=== PATIENT | female | born 2005 | race Caucasian/White ===

== ENCOUNTER 2023-09-27 05:47 | Emergency (ER) | payer OTHER, BC, SELFPAY ==
[2023-09-27 05:50] VITALS: BP 131/84; PULSE 95; TEMP 36.8; O2SAT 99; BMI 32.8
--- NOTE | 2023-09-27 06:02 | ED.PREGNANC1 ---
HPI - General Chief complaint: OB/Uterine Contractions Stated complaint: issues 10 weeks Time Seen by Provider: 09/27/23 05:59 Source: patient Mode of arrival: walk-in Limitations: no limitations History of Present Illness HPI Narrative: [id number] 12 weeks presents with complaint of vaginal bleeding and abdominal cramping. Past history of PCOS. States noted brown discharge last PM around 8:30 when she would wipe. Later discharged red and noticeable with urination. No fever or chills or nausea. Denies family history of miscarriage or past history of PE or DVT MD Complaint: Reports vaginal bleeding Review of Systems ROS Status of ROS 10 or more systems reviewed and unremarkable except as noted in history and below Exam Constitutional Vital Signs, click to edit/add: Last Vital Signs Temp 98.3 F 09/27/23 05:50 Pulse 95 H 09/27/23 05:50 Resp 18 09/27/23 05:50 BP 131/84 09/27/23 05:50 Pulse Ox 99 09/27/23 05:50 O2 Del Method Room Air 09/27/23 05:50 Common normals: no apparent distress, average body habitus, oriented x3, no limitations, healthy appearing, alert and well nourished [facility] Common normals: normocephalic and head/scalp atraumatic Eye Common normals: EOMs intact bilaterally and conjunctivae normal Respiratory Common normals: normal respiratory effort, no retractions, no use of accessory muscles and clear to auscultation bilaterally Cardio Common normals: regular rate, regular rhythm, S1 normal heart sound and S2 normal heart sound GI Other: soft. mild suprapubic tenderness Other: normal external genital exam. Small amount of blood from os into vaginal canal. No active bleeding. No cervical motion tenderness. No adnexa mass or tenderness Extremity Common normals: normal to inspection and full ROM Neuro Common normals: oriented x3, CN's II-XII intact bilaterally, moves all extremities and no focal motor deficits Psych Appearance: grossly normal Course Vital Signs Vital signs: Vital Signs Temperature 98.3 F 09/27/23 05:50 Pulse Rate 95 H 09/27/23 05:50 Respiratory Rate 18 09/27/23 05:50 Blood Pressure 131/84 09/27/23 05:50 Pulse Oximetry 99 09/27/23 05:50 Oxygen Delivery Method Room Air 09/27/23 05:50 Temperature 98.3 F 09/27/23 05:50 Pulse Rate 95 H 09/27/23 05:50 Respiratory Rate 18 09/27/23 05:50 Blood Pressure 131/84 09/27/23 05:50 Pulse Oximetry 99 09/27/23 05:50 Oxygen Delivery Method Room Air 09/27/23 05:50 MDM - OB/Uterine Contractions MDM Narrative Medical decision making narrative: [id number] 12 week vaginal bleeding. Pelvic exam with blood from os into canal that is mild. No obvious active bleeding. Bimanual exam is normal. labs pending. US ordered. Care transferred to oncoming physician at change of shift Lab Data Labs: Lab Results 09/27/23 09/27/23 Range/Units 06:10 06:14 WBC 12.0 H (4.0-11.0) 10^3/uL RBC 4.93 (4.20-5.40) 10^6/uL Hgb 13.7 (12.0-16.0) g/dL Hct 41.6 (36.0-48.0) % MCV 84.4 (81.0-99.0) fL MCH 27.8 (26.7-34.0) pg MCHC 32.9 (29.9-35.2) g/dL RDW 12.7 (11.0-15.0) % Plt Count 439 (150-450) 10^3/uL MPV 9.3 L (9.5-13.5) fL Neut % (Auto) 63.2 (43.0-75.0) % Lymph % (Auto) 26.4 (20.5-60.0) % Chambers % (Auto) 8.3 (1.7-12.0) % Eos % (Auto) 1.1 (0.9-7.0) % Baso % (Auto) 0.7 (0.2-2.0) % Neut # (Auto) 7.6 H (1.4-6.5) 10^3/uL Lymph # (Auto) 3.2 (1.2-3.8) 10^3/uL Chambers # (Auto) 1.0 H (0.3-0.8) 10^3/uL Eos # (Auto) 0.1 (0.0-0.7) 10^3/uL Baso # (Auto) 0.1 (0.0-0.1) 10^3/uL Abs Immat Gran (auto) 0.04 H (0.00-0.03) 10^3/uL Imm/Tot Granulo (auto) 0.3 (0.0-0.5) % Urine Color Brown A (YELLOW) Urine Clarity Clear (CLEAR) Urine pH 5.5 (5.0-9.0) Ur Specific Emblem >=1.030 A (1.005-1.025) Urine Protein 30 A (NEG/TRACE) mg/dL Urine Glucose (UA) Negative (NEGATIVE) mg/dL Urine Ketones >=80 A (NEGATIVE) mg/dL Urine Occult Blood Large A (NEGATIVE) Urine Nitrite Negative (NEGATIVE) Urine Bilirubin Moderate A (NEGATIVE) Urine Urobilinogen 0.2 (0.2-1.0) EU/dL Ur Leukocyte Esterase Trace A (NEGATIVE) Discharge Plan Discharge Chief Complaint: OB/Uterine Contractions Clinical Impression: Vaginal bleeding affecting early Patient Disposition: Still a Patient Print Language: Salvadorean Referrals: JEANINE DIOP [Primary Care Provider] - 1 week
[2023-09-27 06:20] LABS: Basophils Absolute Auto 0.1 10^3/uL (0.0-0.1); Basophils Percent Auto 0.7 % (0.2-2.0); Eosinophils Absolute Auto 0.1 10^3/uL (0.0-0.7); Eosinophils Percent Auto 1.1 % (0.9-7.0); Hematocrit 41.6 % (36.0-48.0); Hemoglobin 13.7 g/dL (12.0-16.0); Immature Granulocytes Abs Auto 0.04 10^3/uL (0.00-0.03); Immature Granulocytes Pct Auto 0.3 % (0.0-0.5); Lymphocytes Absolute Auto 3.2 10^3/uL (1.2-3.8); Lymphocytes Percent Auto 26.4 % (20.5-60.0); Mean Corpuscular HGB Conc 32.9 g/dL (29.9-35.2); Mean Corpuscular Hemoglobin 27.8 pg (26.7-34.0); Mean Corpuscular Volume 84.4 fL (81.0-99.0); Mean Platelet Volume 9.3 fL (9.5-13.5); Monocytes Percent Auto 8.3 % (1.7-12.0); Neutrophils Absolute Auto 7.6 10^3/uL (1.4-6.5); Neutrophils Percent Auto 63.2 % (43.0-75.0); Platelet Count 439 10^3/uL (150-450); Red Blood Count 4.93 10^6/uL (4.20-5.40); Red Cell Distribution Width 12.7 % (11.0-15.0)
[2023-09-27 06:22] LABS: Bilirubin Urine MODERATE (NEGATIVE); Blood Urine LARGE (NEGATIVE); Clarity Urine CLEAR (CLEAR); Color Urine BROWN (YELLOW); Glucose Urine UA NEGATIVE (NEGATIVE); Ketones Urine >=80 mg/dL (NEGATIVE); Leukocyte Esterase Urine TRACE (NEGATIVE); Nitrite Urine NEGATIVE (NEGATIVE); Protein Urine 30 mg/dL (NEG/TRACE); Specific Gravity Urine >=1.030 (1.005-1.025); Urobilinogen Urine 0.2 EU/dL (0.2-1.0); pH Urine 5.5 (5.0-9.0)
[2023-09-27 06:23] LABS: Urine Microscopic Indicated YES
--- NOTE | 2023-09-27 06:26 | US_ITS ---
The [address] [address] Patient Name: SUN VASQUEZ MRN: [id number] date: 2005 Sex: F Assigned Patient Location: ER Current Patient Location: ER Accession/Order Number: [id number] Exam Date: 09/27/2023 06:27 Report Date: 09/27/2023 07:34 At the request of: MYRNA ZAMORA Procedure: US OB transvaginal EXAM: US OB transvaginal HISTORY: . miscarriage? . COMPARISON: None. TECHNIQUE: Transvaginal scanning was performed FINDINGS: Scanning of the pelvis demonstrates within the endometrial cavity of the fundus of the uterus a well-formed cystic structure. No definite pole or yolk sac is noted. Findings could represent a very early gestational sac or an empty sac. Along the edge of the gestational sac is a 1.4 x 0.8 x 0.7 cm hypoechoic area. Right ovary measures 2 x 2 0.6 x 2 cm. Color-flow is noted. Small follicles are noted. Left ovary measures 2.3 x 1.6 x 1.8 cm. Color-flow is noted. Small follicles are noted. No fluid is noted in the cul-de-sac. US/US OB transvaginal IMPRESSION: 1. Small left cystic area noted within the endometrial cavity of the fundus of uterus. Findings could represent a early intrauterine or an empty sac. Along the edge of the cystic structure is a 1.4 x 0.7 cm hypoechoic paracolic area most consistent with a subchorionic bleed. Correlation clinically is suggested along with correlation of a quantitative beta hCG. Follow-up is suggested. 2. Both ovaries appear normal with no masses. 3. The cervix is closed and measures 3.1 cm. Electronically authenticated by: RIGO HUNT Date: 09/27/2023 07:34
[2023-09-27 06:33] LABS: Bacteria Urine NONE SEEN #/HPF (NONE SEEN); Cast Seen? NONE SEEN #/LPF (NONE SEEN); Crystals Seen? None Seen #/HPF (None Seen); Mucus Urine MODERATE (NONE SEEN); RBC Urine 50-75 #/HPF (0-2); Squamous Epithelial Cell Urine RARE #/LPF (NONE/RARE); WBC Urine 0-2 #/HPF (NONE SEEN)
[2023-09-27 06:34] LABS: Urine Culture Indicated NO
[2023-09-27 06:57] LABS: Anion Gap 19.1; BUN Creatinine Ratio 14.9; Calcium 8.9 mg/dL (8.5-10.1); Carbon Dioxide 22.3 mmol/L (21.0-32.0); Chloride 103 mmol/L (98-107); Estimated GFR (African America >60 (>=60); Estimated GFR (Non-African Ame >60 (>=60); Glucose 87 mg/dL (74-106); HCG Quantitative 2451 mIU/mL; Potassium 3.4 mmol/L (3.5-5.1); Sodium 141 mmol/L (136-145)
[2023-09-27] MEDS: ACETAMINOPHEN 325 MG TABLET 650 MG PO (09:11)
[2023-09-29 20:07] LABS: Neisseria gonorrhoeae, NAA Negative (Negative)
== END 2023-09-27 09:12 | disposition home or self-care (01) ==
PROVIDERS: Emergency Provider Internal Medicine; PCP Nurse Practitioner Family
DX: O20.0 Threatened abortion (principal); Z3A.12 12 weeks gestation of pregnancy
CPT/HCPCS: 36415; 76817; 80048; 81001; 84702; 85025; 86850; 86900; 86901; 87210; 87491; 87591; 99284

== ENCOUNTER 2024-04-30 14:41 | Emergency (ER) | payer OTHER, BC, SELFPAY ==
[2024-04-30 14:51] VITALS: BP 156/93; PULSE 90; TEMP 36.6; O2SAT 98; BMI 32.8
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
[2024-04-30] MEDS: IBUPROFEN 600 MG TABLET PO (16:02)
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
[2024-04-30 17:12] VITALS: PULSE 91; O2SAT 97
== END 2024-04-30 17:15 | disposition home or self-care (01) ==
PROVIDERS: Emergency Provider Emergency Medicine
DX: Z04.1 Encounter for examination and observation following transport accident (principal); M54.2 Cervicalgia
CPT/HCPCS: 72125; 99284

== ENCOUNTER 2025-02-21 14:46 | Emergency (ER) | payer BC, SELFPAY ==
--- OUTSIDE RECORDS SUMMARY | 2025-02-21 14:55 | XMS_ITS | Encounter Summary ---
Author Organization [facility] Address [address] [place] [address] Care Team Providers Care Software Validation Technician Name Role Phone Govind Mejia DO Primary Care Provider [phone] Source Comments In the event this information is protected by the Federal Confidentiality of Alcohol and Drug AbusePatient Records regulations: The Federal rules restrict any use of the information to criminally investigate or prosecute any alcohol or drug abuse patient.[facility] Encounter Details Date Type Department Care Team (Late st Contact Info) Description 04/08/2017 Get Medical Advice Pediatric Rheumatology [address] [place] [address] Ori Mchugh MD [address] [place] [address] RE: Non-Urgent Medical Question Social History Tobacco Use Types Packs/Day Years Used Date Smoking Tobacco: Never Comments No Sex and Gender Information Value Date Recorded Sex Assigned at Not on file Legal Sex Female 11:48 AM EDT Gender Identity Not on file Sexual Orientation Not on file documented as of this encounter Plan of Treatment Not on file documented as of this encounter Visit Diagnoses Not on filedocumented in this encounter Care Teams Software Validation Technician Relationship Specialty Start Date End Date Govind Mejia DO PCP - General Family Medicine 12/19/15 documented as of this encounter
--- OUTSIDE RECORDS SUMMARY | 2025-02-21 14:55 | XMS_ITS | Encounter Summary ---
Author Organization [facility] Address [address] [place] [address] Care Team Providers Care Catering Administrative Assistant Name Role Phone Govind Mejia Primary Care Provider [phone] Source Comments In the event this information is protected by the Federal Confidentiality of Alcohol and Drug AbusePatient Records regulations: The Federal rules restrict any use of the information to criminally investigate or prosecute any alcohol or drug abuse patient.[facility] Encounter Details Date Type Department Care Team (Late st Contact Info) Description 05/01/2017 Patient Msg Pediatrics [address] [place] [address] [place] [address] [place] [address] RE: Appointment Cancellation Request Social History Tobacco Use Types Packs/Day Years [...] on filedocumented in this encounter Care Teams Catering Administrative Assistant Relationship Specialty Start Date End Date Govind Mejia DO PCP - General Family Medicine 12/19/15 documented as of this encounter
--- OUTSIDE RECORDS SUMMARY | 2025-02-21 14:55 | XMS_ITS | Clinical Summary ---
Author Organization [facility] Address [address] [place], [place] [id number] Care Team Providers Care Records Tech Name Role Phone Govind Mejia Primary Care Provider [phone] Allergies No known active allergies Medications NORGESTIMATE-ETH INYL ESTRADIOL (ORTHO TRI-CYCLEN, 28, ORAL) Take by mouth. Active ISOtretinoin (ACCUTANE) 40 mg capsuleIndicatio ns:Right wrist pain,Family history of juvenile rheumatoid arthritis,Rheuma toid factor positive Take 40 mg by mouth once daily. Active Active Problems Problem Noted Date Diagnosed Date Right wrist pain 02/06/2016 Family history of juvenile rheumatoid arthritis 02/06/2016 Social History Tobacco Use Types Packs/Day Years Used Date Smoking Tobacco: Never Comments No Sex and Gender Information Value Date Recorded Sex Assigned at Not on file Legal Sex Female 11:48 AM EDT Gender Identity Not on file Sexual Orientation Not on file Last Filed Vital Signs Vital Sign Reading Time Taken Comments Blood Pressure 108/68 01/21/2017 2:38 PM EDT Pulse 76 01/21/2017 2:38 PM EDT Temperature 36.7 C (98 F) 01/21/2017 2:38 PM EDT Respiratory Rate 20 01/21/2017 2:38 PM EDT Oxygen Saturation 100% 01/21/2017 2:38 PM EDT Inhaled Oxygen Concentration - - Weight 60.6 kg (133 lb 9.6 oz) 01/21/2017 2:38 P M EDT Height 157.8 cm (5' 2.13 ) 01/21/2017 2:38 PM ED T Body Mass Index 24.34 01/21/2017 2:38 PM EDT Plan of Treatment Health Maintenance Due Date Last Done Comments Peds To Adult Transition Initial Discussion 2015 Peds To Adult Transition Annual Assessment 2017 HPV Vaccine (1 - 3-dose series) 2018 Meningococcal B Vaccine (1 of 2 - Standard) 2019 Anxiety Screening 2021 Chlamydia Screening (18-24) 2021 Depression Screening 2021 GC (Gonorrhea) Screening (18-24) 2021 HIV Screening 2021 Hepatitis C Screening 2021 DTaP,Tdap,Td Vaccine (1 - Tdap) 2022 Hepatitis B Vaccine (1 of 3 - 19+ 3-dose series) 03/17 Cervical Cancer Screening 2024 Influenza Vaccine (#1) 2025 Insurance BLUE CARD O [place] [employer] [place] Care Teams Records Tech Relationship Specialty Start Date End Date Govind Mejia DO PCP - General Family Medicine 12/19/15
--- OUTSIDE RECORDS SUMMARY | 2025-02-21 14:55 | XMS_ITS | Encounter Summary ---
Author Organization [facility] Address [address] [place] [address] Care Team Providers Care Double End Chucking Machine Operator Name Role Phone Govind Mejia DO Primary Care Provider [phone] Source Comments In the event this information is protected by the Federal Confidentiality of Alcohol and Drug AbusePatient Records regulations: The Federal rules restrict any use of the information to criminally investigate or prosecute any alcohol or drug abuse patient.[facility] Encounter Details Date Type Department Care Team (Late st Contact Info) Description 07/07/2017 Patient Msg Pediatric Rheumatology [address] [place], [place] [id number] Ori Mchugh MD [address] [place] [address] RE: Appointment Cancellation Request Social History Tobacco [...] on filedocumented in this encounter Care Teams Double End Chucking Machine Operator Relationship Specialty Start Date End Date Govind Mejia DO PCP - General Family Medicine 12/19/15 documented as of this encounter
--- OUTSIDE RECORDS SUMMARY | 2025-02-21 14:55 | XMS_ITS | Encounter Summary ---
Author Organization [facility] Address [id number] [address] [place] [address] Care Team Providers Care Four Corner Stayer Machine Operator Name Role Phone Disha Randolph IVOLETTE Primary Care Provide r Reason for Visit * Reason Comments Med Refill Encounter Details Date Type Department Care Team (Late st Contact Info) Description 02/20/2020 Refill [facility] [address] [place] [address] Alisha Morales, DO [address] [place] [address] Social History Tobacco Use Types Packs/Day Years Used Date Smoking Tobacco: Never Smokeless Tobacco: Never Alcohol Use Standard Drinks/Week Comments No 0 (1 standard drink = 0.6 oz pur e alcohol) PHQ-2 Answer Date Recorded Total Score 19 02/14/2020 Childcare Answer Date Recorded Childcare Unknown 11/19/2018 Employment Answer Date Recorded Employment Unknown 11/19/2018 Comments Unknown Sex and Gender Information Value Date Recorded Sex Assigned at Not on file Legal Sex Female 4:02 PM EDT Gender Identity Not on file Sexual Orientation Not on file COVID-19 Exposure Response Date Recorded In the last month, have you been in contact with someone who was confirmed or suspected to have Coronavirus / COVID-19? No / Unsure 02/14/2020 8:43 AM EDT documented as of this encounter Plan of Treatment Not on file documented as of this encounter Visit Diagnoses Not on filedocumented in this encounter Additional Health Concerns Assessment Noted Time PHQ-9 Depression Total Score: 19 020 8:48 AM EDT A Body Mass Index follow-up plan has been documented for the patient 06/24/2019 7:36 PM EST documented as of this encounter Care Teams Four Corner Stayer Machine Operator Relationship Specialty Start Date End Date Disha Randolph APRN-IMMUNOLOGY SPECIALIST [address] [place] [address] PCP - General Family Medicine 09/14/20 documented as of this encounter
--- OUTSIDE RECORDS SUMMARY | 2025-02-21 14:55 | XMS_ITS | Encounter Summary ---
Author Organization [facility] Address [address] [place] [address] Care Team Providers Care Relief Cook Name Role Phone Govind Mejia DO Primary Care Provider [phone] Source Comments In the event this information is protected by the Federal Confidentiality of Alcohol and Drug AbusePatient Records regulations: The Federal rules restrict any use of the information to criminally investigate or prosecute any alcohol or drug abuse patient.[facility] Encounter Details Date Type Department Care Team (Late st Contact Info) Description 02/12/2017 Get Medical Advice Pediatric Rheumatology [address] [place] [address] Ori Mchugh MD [address] [place] [address] RE: Visit Follow Up Question Social History Tobacco Use Types Packs/Day [...] on filedocumented in this encounter Care Teams Relief Cook Relationship Specialty Start Date End Date Govind Mejia DO PCP - General Family Medicine 12/19/15 documented as of this encounter
--- OUTSIDE RECORDS SUMMARY | 2025-02-21 14:55 | XMS_ITS | Clinical Summary ---
Author Organization [facility] Healthcare Address [address] [place] [address] Care Team Providers Care Informatica Mdm Developer Name Role Phone Harjinder Machado MD Primary Care Provider [phone] Danielle Arana NP Unavailable [phone] Allergies No known active allergies Medications metFORMIN (Glucophage) 500 MG tabletIndications: PCOS (polycystic ovarian syndrome) Take 1 tablet (500 mg) by mouth in the morning. Take with meals. 30 tablet 11 4 05/05/20 25 Active amphetamine-dextro amphetamine XR (Adderall XR) 15 MG 24 hr capsuleIndications :Attention deficit hyperactivity disorder (ADHD), combined type Take 1 capsule (15 mg) by mouth in the morning. Do not crush or chew. 30 capsule 5 Active amphetamine-dextro amphetamine XR (Adderall XR) 15 MG 24 hr capsuleIndications :Attention deficit hyperactivity disorder (ADHD), combined type Take 1 capsule (15 mg) by mouth in the morning. Do not crush or chew. Do not start before October 27, 2024. 30 capsule 5 Active amphetamine-dextro amphetamine XR (Adderall XR) 15 MG 24 hr capsuleIndications :Attention deficit hyperactivity disorder (ADHD), combined type Take 1 capsule (15 mg) by mouth in the morning. Do not crush or chew. Do not start before November 26, 2024. 30 capsule 5 Active FLUoxetine (PROzac) 20 MG capsuleIndications :Generalized anxiety disorder,Moderate episode of recurrent major depressive disorder (HCC) Take 1 capsule (20 mg) by mouth Daily 30 capsule 1 5 Active buPROPion XL (Wellbutrin XL) 150 MG 24 hr tabletIndications: Generalized anxiety disorder Take 1 tablet (150 mg) by mouth Daily Do not crush, chew, or split. 30 tablet 2 5 Active Active Problems Problem Noted Date Diagnosed Date Attention deficit hyperactiv ity disorder (ADHD), combined type 09/27/2024 Overview (09/27/2024): Med agreement: 09/27/24 Assessment & Plan (09/27/2024 10:41 AM EDT): I have reviewed her Neuro Psych testing Which confirms presence of both depression and anxiety, as well as ADHD Will trial adderall XR, I did speak to her about how the med worked, and also potential side effects OARRS reviewed Med agreement signed Low self esteem 08/24/2024 Class 1 obesity due to exces s calories without serious comorbidity in adult 08/16/2024 Assessment & Plan (09/27/2024 6:42 AM EDT): Discussed with patient their BMI (actual, verses recommended). We have also discussed lifestyle modifications: attempts to perform physical activity as chronic conditions allow, also to monitor dietary intake: increasing protein/fruits/veggies and lowering carb intake (unless contraindicated). Limit sodas, juices, and sugary drinks. Assessment & Plan (08/16/2024 7:11 AM EST): Discussed with patient their BMI (actual, verses recommended). We have also discussed lifestyle modifications: attempts to perform physical activity as chronic conditions allow, also to monitor dietary intake: increasing protein/fruits/veggies and lowering carb intake (unless contraindicated). Limit sodas, juices, and sugary drinks. Difficulty concentrating 08/16/2024 Assessment & Plan (08/16/2024 2:14 PM EST): Will refer to Neuro Psych for evaluation PTSD (post-traumatic stress disorder) 08/03/2024 Metabolic syndrome 01/03/2023 Acrocyanosis 07/27/2019 Heartburn 07/27/2019 Insomnia 07/27/2019 Acne vulgaris 10/09/2017 Generalized anxiety disorder 03/20/2017 Overview (08/16/2024): Other meds: lexaprol. Wellbutrin and sertraline Assessment & Plan (09/27/2024 10:19 AM EDT): Current meds: fluoxetine, and buproprion XL SELENE 7 score=13 No dose changes, we will trial adding adhd meds At see how anxiety goes with that Fu in 6 weeks Assessment & Plan (08/16/2024 2:15 PM EST): Current meds: escitalopram, and buproprion XL SELENE 7 score= 14 Stop escitalopram, will add fluoxetine at 20mg daily, Take medication only as directed. This medication will take approximately 4-6 weeks to become effective. If any suicidal thoughts, thoughts of hurting others, or hallucinations contact the office or proceed to the Emergency Room for mental health evaluation. Medication may cause dry mouth, dizziness, and in some cases worsening in depression symptoms. Please contact the office if these occur. Cont counseling, fu in 6 weeks Moderate episode of recurrent major depressive d isorder 03/20/2017 Overview (08/16/2024): Meds in the past: sertaline, escitalopram and wellbutrin Assessment & Plan (09/27/2024 10:19 AM EDT): Current meds: buproprion XL and fluoxetine PHQ 9= 14 We will leave fluoxetine at current dose, and on board adhd meds, and fu in 6 weeks Consider doses increase at next appt Assessment & Plan (08/16/2024 2:16 PM EST): Current meds: buproprion XL and escitalopram PHQ 9= 14 Discontinue escitalopram Trial fluoxetine at 20mg daily Take medication only as directed. This medication will take approximately 4-6 weeks to become effective. If any suicidal thoughts, thoughts of hurting others, or hallucinations contact the office or proceed to the Emergency Room for mental health evaluation. Medication may cause dry mouth, dizziness, and in some cases worsening in depression symptoms. Please contact the office if these occur. Assessment & Plan (06/28/2024 9:52 AM EST): Started on Wellbutrin 2 monhs ago for depression. States she has not noticed any change since starting medication. Denies SI/HI. Reports is still very tearful, saddened. Reports anxiety at bedtime. Will add Lexapro today. Pt is agreeable to therapy at this time. Referral sent to [facility] for therpay services. Will re-evaluate in 6-8 weeks. Assessment & Plan (05/05/2024 11:52 AM EST): Was previously on Wellbutrin 150mg XR- stopped nearly two years ago, felt she no longer needed medication. Had a miscarriage 6 months ago and states she has had significant depression since. Little desire to leave the house. Denies SI/HI. Pt agreeable to therapy for support. Reports solid support system. Will initiate Wellbutrin again today. Follow up in 8 weeks. Family history of juvenile rheumatoid arthritis 02/06/2016 PCOS (polycystic ovarian syndrome) Assessment & Plan (08/16/2024 7:09 AM EST): Current med metfromin Assessment & Plan (05/05/2024 11:52 AM EST): was previously on metformin 500mg prescribed by [employer], was increased to 700mg- but developed nausea. Stopped metformin. Would like to go back on today for PCOS. Cannot get into [employer] until next year due to insurance. Initiated metformin 500mg once daily. Resolved Problems Problem Noted Date Diagnosed Date Resolved Date Abnormality of hormone 01/03/202308/16 Calculus of gallbladder with acute and chronic cholecystitis without obstruction 01/03/2023 08/16/2024 Right wrist pain 02/06/2016 08/16/2024 Immunizations Immunization Administration Dates Next Due DTaP 12/30/2007,07/04/2004 DTaP / Hep B / IPV 2003,2003, 003 Hep A, ped/adol, 2 dose 05/12/2018,10/09/2017 Hep B, Adolescent or Pediatric 2003 Hib (PRP-T) 04/02/2004,2003,2003 ,2003 IPV 12/30/2007 MMR 12/30/2007,04/02/2004 Meningococcal B, Omv 07/27/2019,06/24/2019 Meningococcal MCV4O 06/24/2019 Pneumococcal Conjugate PCV 7 04/02/2004,08/08/19 04,2003 Tdap 11/30/2014 Varicella 11/30/2014,12/30/2007 Family History Medical History Relation Name Comments Polycystic ovary syndrome Mother Relation Name Status Comments Brother Alive 1 Father Alive Mother Alive Sister Alive 1 Social History Tobacco Use Types Packs/Day Years Used Date Smoking Tobacco: Never Smokeless Tobacco: Never Tobacco Cessation:Counseling Given: Not Answered Alcohol Use Standard Drinks/Week Comments Never 0 (1 standard drink = 0.6 oz pure alcohol) Caffeine intake: 8oz soda/pop 1-2 week B1300 Health Literacy Answer Date Recor ded How often do you need to hav e someone help you when you read instructions, pamphlets, or other written material from your doctor or pharmacy? Never 06/28/2024 Social Connection and Isolat ion Panel [NHANES] Answer Date Recorded In a typical week, how many times do you talk on the phone with family, friends, or neighbors? More than three times a week 06/28/2024 How often do you get togethe r with friends or relatives? Once a week 06/28/2024 How often do you attend [facility] or sabianism services? 1 to 4 times per year 06/28/2024 Do you belong to any clubs o r organizations such as episcopalian groups, unions, fraternal or athletic groups, or school groups? No 06/28/2024 How often do you attend meet ings of the clubs or organizations you belong to? Patient declined 06/28/2024 Are you , , di vorced, , never , or living with a partner? Living with partner 06/28/2024 AUDIT-C Answer Date Recorded Q1: How often do you have a drink containing alcohol? Never 06/28/2024 Q2: How many drinks containi ng alcohol do you have on a typical day when you are drinking? Patient does not drink Q3: How often do you have si x or more drinks on one occasion? Never 06/28/2024 Overall Financial Resource Strain (CARDIA) Answe r Date Recorded How hard is it for you to pa y for the very basics like food, housing, medical care, and heating? Somewhat hard 06/28/2024 PHQ-2 Answer Date Recorded Patient Health Questionnaire-2 Score 0 01/20/2023 [facility] - Occupational Stress Questionnaire Answer Date Recorded Do you feel stress - tense, restless, nervous, or anxious, or unable to sleep at night because your mind is troubled all the time - these days? To some extent 06/28/2024 Exercise Vital Sign Answer Date Recorde d On average, how many days pe r week do you engage in moderate to strenuous exercise (like a brisk walk)? 2 days 06/28/2024 On average, how many minutes do you engage in exercise at this level? 20 min 06/28/2024 Hunger Vital Sign Answer Date Recorded Within the past 12 months, y ou worried that your food would run out before you got the money to buy more. Sometimes true Within the past 12 months, t he food you bought just didn't last and you didn't have money to get more. Sometimes true PRAPARE - Transportation Answer Date Re corded In the past 12 months, has l ack of transportation kept you from medical appointments or from getting medications? No 06/16 In the past 12 months, has l ack of transportation kept you from meetings, work, or from getting things needed for daily living? No 06/28/2024 Housing Stability Vital Sign Answer Raymond e Recorded In the last 12 months, was t here a time when you were not able to pay the mortgage or rent on time? No 06/28/2024 In the past 12 months, how m any times have you moved where you were living? 0 06/28/2024 At any time in the past 12 m [facility], were you homeless or living in a halfway (including now)? No 06/28/2024 Comments No Sex and Gender Information Value Date Recorded Sex Assigned at Not on file Legal Sex Female 11:36 PM EDT Gender Identity Not on file Sexual Orientation Not on file Occupation Industry Job Start Date Job End Date [employer] Not on file Not on file Not on file Last Filed Vital Signs Vital Sign Reading Time Taken Comments Blood Pressure 118/80 09/27/2024 9:56 AM EDT Pulse 85 09/27/2024 9:56 AM EDT Temperature 36.7 C (98 F) 09/27/2024 9:56 AM EDT Respiratory Rate 18 09/27/2024 9:56 AM EDT Oxygen Saturation 96% 09/27/2024 9:56 AM EDT Inhaled Oxygen Concentration - - Weight 89.1 kg (196 lb 6.4 oz) 09/27/2024 9:56 A M EDT Height 162.6 cm (5' 4 ) 06/28/2024 9:34 AM EST Body Mass Index 33.71 06/28/2024 9:34 AM EST Plan of Treatment Health Maintenance Due Date Last Done Comments Influenza Vaccine (#1) 2025 Goals Goal Patient Goal Type Associated Problems Recent Progress Patient-Stated? Author Help patient manage antidepressant medication Care Plan Patient on antidepressant monitoring plan No Tierney Fan NP Baseline PHQ-9 Care Plan Baseline PHQ-9 No Tierney Fan NP Additional Health Concerns Active Problems Noted Date Diagnosed Date Patient on antidepressant monitoring plan 2023 Baseline PHQ-9 05/05/2024 Insurance [facility] Care Teams Informatica Mdm Developer Relationship Specialty Start Date End Date Harjinder Machado MD PCP - General Family Medicine 04/19/24 Danielle Arana NP Nurse Practitioner Family Medicine 08/16/24
--- OUTSIDE RECORDS SUMMARY | 2025-02-21 14:55 | XMS_ITS | Clinical Summary ---
Author Organization [facility] tem Address [id number] [address] [place] [address] Care Team Providers Care Salvage Engineering Technician Name Role Phone Disha Randolph TAY-WHIPPER Primary Care Provide r Allergies Active Allergy Reactions Criticality Noted Date Comments No Known Drug Allergies 03/20/2017 Medications * This document contains information received from the source organization and may not represent a complete record from that organization. etonogestrel (NEXPLANON) 68 mg implant 68 mg. 8 Active minocycline (MINOCIN,DYNACIN ) 100 mg capsule Take 100 mg by mouth daily. 0 9 Active CAPMIST DM 60-15-400 mg tablet Take 1 tablet by mouth every 6 (six) hours as needed. 0 9 Active amoxicillin (AMOXIL) 875 mg tabletIndication s:Acute non-recurrent frontal sinusitis Take 1 tablet (875 mg total) by mouth 2 (two) times a day. 20 tablet 9 Active Additional Information Patient not taking.Reported on 02/14/2020 MYORISAN 40 mg capsule Take 40 mg by mouth daily. 0 9 Active traZODone (DESYREL) 50 mg tabletIndication s:Insomnia, unspecified type Take 1 tab PO qhs. If no improvement of insomnia after 5-7 days, please increase dose to 1.5 tabs PO qhs. 45 tablet 1 0 Active Additional Information Patient not taking.Reported on 02/14/2020 QUEtiapine (SEROquel) 25 mg tablet take 1 tablet by mouth EVERY NIGHT 30 tablet 0 Active Additional Information Patient not taking.Reported on 02/14/2020 escitalopram (LEXAPRO) 10 mg tabletIndication s:Moderate episode of recurrent major depressive disorder (CMS-HCC) Take 1.5 tabs PO daily for 7 days, then 1 tab daily for 7 days then 0.5 tab PO daily for 7 days. 21 tablet 0 Active venlafaxine XR (EFFEXOR-XR) 37.5 mg 24 hr capsuleIndicatio ns:Moderate episode of recurrent major depressive disorder ([facility]-HCC) take 1 capsule by mouth once daily - TO START ON 3RD WEEK OF TITRATION OFF LEXAPRO 30 capsule 1 Active fluticasone propionate (FLONASE) 50 mcg/actuation nasal spray instill 2 sprays into each nostril once daily 16 g 1 1 Active Active Problems Problem Noted Date Diagnosed Date Acrocyanosis 07/27/2019 Insomnia 07/27/2019 Heartburn 07/27/2019 Acne vulgaris 10/09/2017 Generalized anxiety disorder 03/20/2017 Moderate episode of recurrent major depressive d isorder 03/20/2017 Family history of juvenile rheumatoid arthritis 02/06/2016 Immunizations Immunization Administration Dates Next Due DTaP 12/30/2007,07/04/2004 DTaP / Hep B / IPV 2003,2003, 003 Hep A, 2 Dose 05/12/2018,10/09/2017 Hep B, Adolescent or Pediatric 2003 Hib (PRP-T) 04/02/2004,2003,2003 ,2003 IPV 12/30/2007 MMR 12/30/2007,04/02/2004 Meningococcal B, Omv 07/27/2019,06/24/2019 Meningococcal Conjugate 06/24/2019 Pneumococcal Conjugate 04/02/2004,2003,08/2002 Tdap 11/30/2014 Varicella 11/30/2014,12/30/2007 Family History Medical History Relation Name Comments Juvenile idiopathic arthritis Brother Depression Father Polycystic ovary syndrome Mother Bipolar disorder Sister half sister Relation Name Status Comments Brother Father Mother Sister Social History Tobacco Use Types Packs/Day Years Used Date Smoking Tobacco: Never Smokeless Tobacco: Never Alcohol Use Standard Drinks/Week Comments No 0 (1 standard drink = 0.6 oz pur e alcohol) PHQ-2 Answer Date Recorded Total Score 19 02/14/2020 Childcare Answer Date Recorded Childcare Unknown 11/19/2018 Employment Answer Date Recorded Employment Unknown 11/19/2018 Purpose - Life Answer Date Recorded Purpose and direction in life Unknown Comments Unknown Sex and Gender Information Value Date Recorded Sex Assigned at Not on file Legal Sex Female 4:02 PM EDT Gender Identity Not on file Sexual Orientation Not on file Last Filed Vital Signs Vital Sign Reading Time Taken Comments Blood Pressure 112/70 02/14/2020 8:50 AM EDT Pulse 90 02/14/2020 8:50 AM EDT Temperature 36.7 C (98.1 F) 02/14/2020 8:50 AM EDT Respiratory Rate 20 02/14/2020 8:50 AM EDT Oxygen Saturation 98% 03/04/2019 9:31 AM EDT Inhaled Oxygen Concentration - - Weight 88.5 kg (195 lb 3.2 oz) 02/14/2020 8:50 A M EDT 195.2lb Height 161.3 cm (5' 3.5 ) 07/27/2019 1:05 PM EST Body Mass Index - - Plan of Treatment Health Maintenance Due Date Last Done Comments Depression Screening 2015 Tobacco Screening 2015 Adult BMI Screening 2021 Pap Smear 2024 DTaP,Tdap and Td Vaccines (7 - Td or Tdap) 11/30/2024 11/30/2014, 12/30/2007, 07/04/2004, Additional history exists Influenza Vaccine 02/14/2025 Medical Devices Not on file [place] [address] ANTHEM MEDICAID ANTHEM ANTHEM MEDICAID ANTHEM Member Subscriber Plan / Payer (Ef fective 2019-Present) Name:Ann Henryabena Dodge Relation to Subscriber:Child Name:Cristobal Ann Date of :1975 (Home) Address: [address] [place] [address] Payer ID:[id number] (NAIC) Type:Not on file Address: [id number] [place] [address] [place] [address] MEDICAID [id number] PLAN [id number] PLAN [facility] [id number] Care Teams Salvage Engineering Technician Relationship Specialty Start Date End Date Disha Randolph APRN-FNP [address] [place] [address] PCP - General Family Medicine 09/14/20
--- OUTSIDE RECORDS SUMMARY | 2025-02-21 14:55 | XMS_ITS | Encounter Summary ---
Author Organization [facility] Address [address] [place] [address] Care Team Providers Care Agronomy Advisor Name Role Phone Govind Mejia DO Primary Care Provider [phone] Source Comments In the event this information is protected by the Federal Confidentiality of Alcohol and Drug AbusePatient Records regulations: The Federal rules restrict any use of the information to criminally investigate or prosecute any alcohol or drug abuse patient.[facility] Encounter Details Date Type Department Care Team (Late st Contact Info) Description 03/13/2017 Get Medical Advice Pediatric Rheumatology [address] [place] [address] Ori Mchugh MD [address] [place] [address] RE: Non-Urgent Medical Question Social History Tobacco Use Types Packs/Day Years Used Date Smoking Tobacco: Never Comments No Sex and Gender Information Value Date Recorded Sex Assigned at Not on file Legal Sex Female 11:48 AM EDT Gender Identity Not on file Sexual Orientation Not on file documented as of this encounter Miscellaneous Notes * Telephone Encounter - Margie Barber - 03/13/2017 12:38 PM EDT Received MRI- Routed to Dr Mchugh to review results below: MRI Wrist WWO contrat: Increased signal in the ulnar collateral ligament and ulnar carpal meniscus. No effusion, arthropathy or subluxation of the distal radioulnar joint. Unremarkable median nerve and flexor reinaculum. Normal extensor tendons. No synovitis or loose bodies Bones: No bone marrow edema, AVN or osteoarthritis. Sent to be scanned. Margie Barber CNP documented in this encounter Plan of Treatment Not on file documented as of this encounter Visit Diagnoses Not on filedocumented in this encounter Care Teams Agronomy Advisor Relationship Specialty Start Date End Date Govind Mejia DO PCP - General Family Medicine 12/19/15 documented as of this encounter
--- OUTSIDE RECORDS SUMMARY | 2025-02-21 14:55 | XMS_ITS | Encounter Summary ---
Author Organization [facility] Address [id number] [address] [place] [address] Care Team Providers Care Cooler Tender Name Role Phone Disha Randolph CLIENT SERVICES DIRECTOR-DAY CARE HOME MOTHER Primary Care Provide r Encounter Details Date Type Department Care Team (Late st Contact Info) Description 03/13/2020 Telephone [facility] [address] [place] [phone] Dayanna Gould CMA Social History Tobacco Use Types Packs/Day Years [...] AM EDT documented as of this encounter Miscellaneous Notes * Telephone Encounter - Dayanna Gould CMA - 03/13/2020 2:18 PM EDT Mother called about referral to Endocrinology. That there was still no appointment set up for patient. Gave mom the phone number that was listed under scheduling. [phone] Dayanna Gould CMA 03/13/20 6610 documented in this encounter Plan of Treatment Not on file documented as of this encounter Visit Diagnoses Not on filedocumented in this encounter Additional Health Concerns Assessment Noted Time PHQ-9 Depression Total Score: 19 020 8:48 AM EDT A Body Mass Index follow-up plan has been documented for the patient 06/24/2019 7:36 PM EST documented as of this encounter Care Teams Cooler Tender Relationship Specialty Start Date End Date Disha Randolph APRN-FNP [address] [place] [address] PCP - General Family Medicine 09/14/20 documented as of this encounter
--- OUTSIDE RECORDS SUMMARY | 2025-02-21 14:55 | XMS_ITS | Encounter Summary ---
Author Organization [facility] Address [id number] [address] [place] [address] Care Team Providers Care Chemistry Teacher Name Role Phone Disha Randolph APRNSHIELA Primary Care Provide r Encounter Details Date Type Department Care Team (Late st Contact Info) Description 11/04/2019 Refill [facility] [address] [place] [phone] Chelle Caal, DORENE Social History Tobacco Use Types Packs/Day Years Used Date Smoking Tobacco: Never Smokeless Tobacco: Never Alcohol Use Standard Drinks/Week Comments No 0 (1 standard drink = 0.6 oz pur e alcohol) PHQ-2 Answer Date Recorded PHQ-2 Score 19 11/01/2019 Childcare Answer Date Recorded Childcare Unknown 11/19/2018 [...] have Coronavirus / COVID-19? No / Unsure 11/01/2019 9:21 AM EDT documented as of this encounter Plan of Treatment Not on file documented as of this encounter Visit Diagnoses Not on filedocumented in this encounter Additional Health Concerns Assessment Noted Time PHQ-9 Depression Total Score: 19 020 9:33 AM EDT A Body Mass Index follow-up plan has been documented for the patient 06/24/2019 7:36 PM EST documented as of this encounter Care Teams Chemistry Teacher Relationship Specialty Start Date End Date Disha Randolph APRN-FNP [address] [facility] [place] [address] PCP - General Family Medicine 09/14/20 documented as of this encounter
--- OUTSIDE RECORDS SUMMARY | 2025-02-21 14:55 | XMS_ITS | Encounter Summary ---
Author Organization [facility] Address [id number] [address] [place] [address] Care Team Providers Care Wig Comber Name Role Phone Disha Randolph VIOLETTE Primary Care Provide r Reason for Visit * Reason Comments Med Refill Encounter Details Date Type Department Care Team (Late st Contact Info) Description 03/03/2020 Refill [facility] [address] [place] [phone] Alisha Morales, DO [address] [place] [address] Generalized anxiety disorder Social History Tobacco Use Types Packs/Day Years [...] documented as of this encounter Visit Diagnoses Diagnosis Generalized anxiety disorder documented in this encounter Additional Health Concerns Assessment Noted Time PHQ-9 Depression Total Score: 19 020 8:48 AM EDT A Body Mass Index follow-up plan has been documented for the patient 06/24/2019 7:36 PM EST documented as of this encounter Care Teams Wig Comber Relationship Specialty Start Date End Date Disha Randolph APRN-FNP [address] [place] [address] PCP - General Family Medicine 09/14/20 documented as of this encounter
--- OUTSIDE RECORDS SUMMARY | 2025-02-21 14:55 | XMS_ITS | Clinical Summary ---
Author Organization [facility] Address [address] [place] [address] Phone Care Team Providers Care Mold Presser Name Role Phone Unavailable Primary Care Provider Unavailabl e Social History Tobacco Use Types Packs/Day Years Used Date Smoking Tobacco: Never Assessed Comments Unknown Sex and Gender Information Value Date Recorded Sex Assigned at Not on file Legal Sex Female 8:28 PM EST Gender Identity Not on file Sexual Orientation Not on file Plan of Treatment Not on file
--- OUTSIDE RECORDS SUMMARY | 2025-02-21 14:55 | XMS_ITS | Encounter Summary ---
Author Organization [facility] Address [address] [place] [address] Care Team Providers Care Inspector Watch Parts Name Role Phone Mejia, Govind Gonzales DO Primary Care Provider [phone] Source Comments In the event this information is protected by the Federal Confidentiality of Alcohol and Drug AbusePatient Records regulations: The Federal rules restrict any use of the information to criminally investigate or prosecute any alcohol or drug abuse patient.[facility] Encounter Details Date Type Department Care Team (Late st Contact Info) Description 05/01/2017 Patient Msg Pediatrics [address] [place] [address] [place] [address] [place] [address] RE: Request an Appointment Social History Tobacco Use Types Packs/Day Years [...] on filedocumented in this encounter Care Teams Inspector Watch Parts Relationship Specialty Start Date End Date Govind Mejia DO PCP - General Family Medicine 12/19/15 documented as of this encounter
--- OUTSIDE RECORDS SUMMARY | 2025-02-21 14:55 | XMS_ITS | Clinical Summary ---
Author Organization [facility] Address [address], [address] [place] [address] Care Team Providers Care Collar Fuser Name Role Phone Unavailable Primary Care Provider Unavailabl e Allergies No known active allergies Medications sertraline (ZOLOFT) 100 MG tablet Take 150 mg by mouth daily Active escitalopram (LEXAPRO) 20 MG tablet take 1 tablet by mouth once daily 12/03/2019 Active etonogestrel (NEXPLANON) 68 MG implant 68 mg 05/05/2018 Active Family History Medical History Relation Name Comments Other Other Pat. uncle x 2 DVT. No family h/o ovarian or breast cancer. Heart Disease Paternal Grandfather Heart Disease Paternal Grandmother Relation Name Status Comments Brother 1 Alive Brother 2 Alive Father Alive Maternal Grandfather Alive Maternal Grandmother Alive Mother Alive Other Other Paternal Grandfather Paternal Grandmother Alive Sister 1 Alive Sister 2 Alive Sister 3 Alive Sister 4 Alive Sister 5 Alive Sister 6 Alive Social History Tobacco Use Types Packs/Day Years Used Date Smoking Tobacco: Never Smokeless Tobacco: Never Alcohol Use Standard Drinks/Week Comments No 0 (1 standard drink = 0.6 oz pur e alcohol) PHQ-2 Answer Date Recorded PHQ-2 Score 8 09/16/2018 Comments No Sex and Gender Information Value Date Recorded Sex Assigned at Not on file Legal Sex Female 11:35 AM EST Gender Identity Not on file Sexual Orientation Not on file Last Filed Vital Signs Vital Sign Reading Time Taken Comments Blood Pressure 118/74 01/27/2020 2:58 PM EDT Pulse - - Temperature - - Respiratory Rate - - Oxygen Saturation - - Inhaled Oxygen Concentration - - Weight 88.7 kg (195 lb 9.6 oz) 01/27/2020 2:58 P M EDT Height 160 cm (5' 3 ) 01/27/2020 2:58 PM EDT Body Mass Index 34.65 01/27/2020 2:58 PM EDT Plan of Treatment Not on file Insurance [place] [employer] [facility] [place] BC[employer]
--- OUTSIDE RECORDS SUMMARY | 2025-02-21 14:55 | XMS_ITS | Encounter Summary ---
Author Organization [facility] Address [id number] [address] 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) Social History Tobacco Use Types Packs/Day Years [...] encounter Miscellaneous Notes * Telephone Encounter - FELIPA Griffin - 06/18/2020 9:03 AM EST LM on mother's phone to call the office to schedule appointment for additional refills.FELIPA Griffin documented in this encounter Plan of Treatment Not on file documented as of this encounter Visit Diagnoses Diagnosis Moderate episode of recurrent major depressive disorder (CMS-HCC) documented in this encounter Additional Health Concerns Assessment Noted Time PHQ-9 Depression Total Score: 19 020 8:48 AM EDT A Body Mass Index follow-up plan has been documented for the patient 06/24/2019 7:36 PM EST documented as of this encounter Care Teams Fruit Picker Machine Operator Relationship Specialty Start Date End Date Disha Randolph APRN-FNP [address] [place] [address] PCP - General Family Medicine 09/14/20 documented as of this encounter
--- OUTSIDE RECORDS SUMMARY | 2025-02-21 14:55 | XMS_ITS | Encounter Summary ---
Author Organization [facility] Address [address] [place] [address] Care Team Providers Care Lubrication Servicer Name Role Phone Govind Mejia DO Primary Care Provider [phone] Source Comments In the event this information is protected by the Federal Confidentiality of Alcohol and Drug AbusePatient Records regulations: The Federal rules restrict any use of the information to criminally investigate or prosecute any alcohol or drug abuse patient.[facility] Encounter Details Date Type Department Care Team (Late st Contact Info) Description 02/12/2017 Get Medical Advice Pediatric Rheumatology [address] [place] [address] Ori Mchugh MD [address] [place] [address] RE: Test Result Question Social History Tobacco Use Types Packs/Day [...] on filedocumented in this encounter Care Teams Lubrication Servicer Relationship Specialty Start Date End Date Govind Mejia DO PCP - General Family Medicine 12/19/15 documented as of this encounter
--- OUTSIDE RECORDS SUMMARY | 2025-02-21 14:55 | XMS_ITS | Encounter Summary ---
Author Organization [facility] Address [address] [place] [place] [address] Care Team Providers Care Welt Wheeler Name Role Phone Unallocated, Noms Provider Primary Care Provi yuliana Unallocated, Noms Provider Primary Care Provi yuliana Harjinder Machado MD Primary Care Provider Tierney Howell SECURITY SYSTEMS SALES REPRESENTATIVE Unavailable [phone] Danielle Arana SECURITY SYSTEMS SALES REPRESENTATIVE Unavailable [phone] Encounter Details Date Type Department Care Team ([facility] Contact Info) Description 01/03/2023 Abstract MICHAEL ROD [address] [facility] [address] [place] [id number] Sascha Blair DO [address] [facility] [address] [place] [address] Social History Tobacco Use Types Packs/Day Years Used Date Smoking Tobacco: Never Smokeless Tobacco: Never Tobacco Cessation:Counseling Given: Not Answered Alcohol Use Standard Drinks/Week Comments Never 0 (1 standard drink = 0.6 oz pur e alcohol) Caffeine intake: soda/pop AUDIT-C Answer Date Recorded Q1: How often do you have a drink containing alcohol? Never 01/03/2023 Q2: How many drinks containi ng alcohol do you have on a typical day when you are drinking? Patient does not drink Q3: How often do you have si x or more drinks on one occasion? Never 01/03/2023 PHQ-2 Answer Date Recorded Patient Health Questionnaire-2 Score 0 01/03/2023 Comments No Sex and Gender Information Value Date Recorded Sex Assigned at Not on file Legal Sex Female 11:36 PM EDT Gender Identity Not on file Sexual Orientation Not on file documented as of this encounter Functional Status * Audit-C Score Answer Date of Assessment Author 0 01/03/2023 9:12 AM EDT Antoine Yanez MA * Question Answer Date of Assessment Author Q1: How often do you have a drink containing alcohol? Never 01/03/2023 9:12 AM EDT Kristi Yanez MA Q2: How many drinks containing alcohol do you have on a typical day when you are drinking? Patient does not drink 01/03/2023 9:12 AM Kristi Rosado MA Q3: How often do you have six or more drinks on one occasion? Never 01/03/2023 9:12 AM EDT Kristi Yanez MA * Over the past 2 weeks, how often have you been bothered by any of the following problems? Question Answer Date of Assessment Author Little interest or pleasure in doing things Not at all 01/03/2023 9:12 AM Kristi Rosado MA Feeling down, depressed, or hopeless Not at all 01/03/2023 9:12 AM Kristi Rosado MA Patient Health Questionnaire -2 Score 0 01/03/2023 9:12 AM Kristi Rosado MA documented as of this encounter Plan of Treatment Not on file documented as of this encounter Visit Diagnoses Not on filedocumented in this encounter Care Teams Welt Wheeler Relationship Specialty Start Date End Date Unallocated, Michael Ty MD PCP - General 01/03/23 01/19/23 UnallocatedMichael MD [address] [place] [address] PCP - General 01/20/23 04/18/24 Harjinder Machado MD [address] [place] [address] PCP - General Family Medicine 04/19/24 Tierney Howell NP [address] [place] [address] Nurse Practitioner Family Medicine 04/19/24 08/15/24 Danielle Arana NP [address] [place] [address] Nurse Practitioner Family Medicine 08/16/24 documented as of this encounter
--- OUTSIDE RECORDS SUMMARY | 2025-02-21 14:55 | XMS_ITS | Encounter Summary ---
Author Organization [employer] [facility] Address [id number] [place] [address] Care Team Providers Care Assembler Show Motor Name Role Phone Disha Randolph Primary Care Provide r Reason for Visit * Reason Comments Med Refill Encounter Details Date Type Department Care Team (Late st Contact Info) Description 08/16/2018 Refill [facility] [address] [place] [id number] Alisha Morales, [address] [place] [address] Anxiety and depression Social History Tobacco Use Types Packs/Day Years Used Date Smoking Tobacco: Never Smokeless Tobacco: Never Alcohol Use Standard Drinks/Week Comments No 0 (1 standard drink = 0.6 oz pur e alcohol) Comments Unknown Sex and Gender Information Value Date Recorded Sex Assigned at Not on file Legal Sex Female 4:02 PM EDT Gender Identity Not on file Sexual Orientation Not on file documented as of this encounter Plan of Treatment Not on file documented as of this encounter Visit Diagnoses Diagnosis Anxiety and depression documented in this encounter Additional Health Concerns Assessment Noted Time A Body Mass Index follow-up plan has been documented for the patient 05/12/2018 11:57 PM EST documented as of this encounter Care Teams Assembler Show Motor Relationship Specialty Start Date End Date Disha Randolph APRN-FNP [address] [place] [id number] PCP - General Family Medicine 09/14/20 documented as of this encounter
[2025-02-21 14:56] VITALS: BP 111/67; PULSE 78; TEMP 36.8; O2SAT 97; BMI 33.5
--- NOTE | 2025-02-21 15:19 | ED_ITS ---
HPI HPI - General Adult General Chief complaint: Upper Respiratory Infection Stated complaint: FEVER CHILLS WEAKNESS TESTED POSITIVE FOR COVID Time Seen by Provider: 02/21/25 15:04 Source: patient Mode of arrival: walk-in History of Present Illness HPI narrative: 19-year-old female presents to the emergency department for a COVID test. She has had some cough and congestion. 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 She states it may have been weakly positive but she is not sure in her place of employment wanted her to have an official test done because their policy prevents her from working with COVID. No fever. She has had the symptoms for 4 days. Related Data Allergies Allergy/AdvReac Type Severity Reaction Status Date / Time No Known Drug Allergies Allergy Verified 02/21/25 14:56 Opioid HPI Opioid Management Most Recent Opioid Data: Last Pain Scale 5 04/30/24, 16:53 Review of Systems ROS Narrative A ten point review of systems is negative except as noted above. PFSH PFSH Social History Little interest or pleasure in doing things: not at all Feeling down, depressed, or hopeless: not at all Exam Narrative Exam Narrative: Nurses note and vital signs reviewed and patient is not hypoxic. General: The patient appears well and in no apparent distress. Patient is resting comfortably on cart. Skin: Warm, dry, no pallor noted. There is no rash noted. Head: Normocephalic, atraumatic Eye: Normal conjunctiva, no drainage Ears, Nose, Mouth, and Throat: oral mucosa is moist. Nares patent. Cardiovascular: Regular Rate and Rhythm Respiratory: Patient is in no distress, no accessory muscle use, lungs are clear to auscultation, no wheezing, rales or rhonchi Back: non-tender GI: Soft and nontender Musculoskeletal: No joint swelling Neurological: A&O, normal speech Psychiatric: Cooperative Constitutional Vital Signs, click to edit/add: Last Vital Signs Temp 98.3 F 02/21/25 14:56 Pulse 78 02/21/25 14:56 Resp 16 02/21/25 14:56 BP 111/67 02/21/25 14:56 Pulse Ox 97 02/21/25 14:56 O2 Del Method Room Air 02/21/25 14:56 Course Vital Signs Vital signs: Vital Signs Temperature 98.3 F 02/21/25 14:56 Pulse Rate 78 02/21/25 14:56 Respiratory Rate 16 02/21/25 14:56 Blood Pressure 111/67 02/21/25 14:56 Pulse Oximetry 97 02/21/25 14:56 Oxygen Delivery Method Room Air 02/21/25 14:56 Temperature 98.3 F 02/21/25 14:56 Pulse Rate 78 02/21/25 14:56 Respiratory Rate 16 02/21/25 14:56 Blood Pressure 111/67 02/21/25 14:56 Pulse Oximetry 97 02/21/25 14:56 Oxygen Delivery Method Room Air 02/21/25 14:56 Medical Decision Making MDM Narrative Medical decision making narrative: COVID test is negative. The patient was informed and discharged home. There is no indication for an antibiotic. My clinical impression is that she has a viral URI. Treatment diagnosis and follow-up were discussed with the patient. Differential Diagnosis Differential Diagnosis: COVID, viral URI Lab Data Lab results reviewed: Yes I reviewed the patient's lab results Labs: Lab Results 02/21/25 Range/Units 15:00 SARS-CoV-2 Ag (CV2AG) Negative (NEGATIVE) Discharge Plan Discharge Chief Complaint: Upper Respiratory Infection Clinical Impression: Viral URI Patient Disposition: Home, Self-Care Time of Disposition Decision: 15:42 Condition: Good Mode of Transportation: Private Vehicle Print Language: Australian Instructions: Upper Respiratory Infection (ED) Referrals: Physician,Non-Staff, MD [Primary Care Provider] - 1 week
[2025-02-21 15:38] LABS: SARS-CoV-2 Ag NEGATIVE (NEGATIVE)
== END 2025-02-21 15:52 | disposition home or self-care (01) ==
PROVIDERS: Emergency Provider Emergency Medicine
DX: J06.9 Acute upper respiratory infection, unspecified (principal)
CPT/HCPCS: 87811; 99283